=== PATIENT | female | born 1985 | race Caucasian/White ===

== ENCOUNTER → 2016-06-29 | Outpatient (CLI) | payer BC ==
[2016-06-29 17:50] LABS: ALT 47 U/L (9-52); AST 28 U/L (14-36); Alkaline Phosphatase 55 U/L (38-126); Anion Gap 11 mmol/L; Blood Urea Nitrogen 11 mg/dL (7-17); Calcium 9.7 mg/dL (8.4-10.2); Carbon Dioxide 27 mmol/L (22-30); Chloride 103 mmol/L (98-107); Cholesterol 148 mg/dL (<200); Glucose 86 mg/dL (74-99); HDL Cholesterol 50 mg/dL (40-60); Magnesium 2.1 mg/dL (1.6-2.3); Non-African American GFR(MDRD) >60 (>60 ml/min/1.73 sqM); Potassium 4.5 mmol/L (3.5-5.1); Sodium 141 mmol/L (137-145); Total Protein 7.8 g/dL (6.3-8.2); Triglycerides 98 mg/dL (<150)
[2016-06-29 18:07] LABS: Follicle Stimulating Hormone 4.8 mIU/mL
[2016-06-29 18:23] LABS: Estradiol 40 pg/mL
[2016-06-29 22:03] LABS: Hemoglobin A1C 4.8 % (4.2-6.1)
== END ==
LOC: LABWHC1 16:53
PROVIDERS: ATTEND Obstetrics & Gynecology
DX: E66.9 Obesity, unspecified (principal); I10 Essential (primary) hypertension; L68.0 Hirsutism; Z72.0 Tobacco use
CPT/HCPCS: 36415; 80053; 80061; 82670; 83001; 83036; 83735; 84403; 84439; 84443; 84481; 86376

== ENCOUNTER → 2017-12-22 | Outpatient (CLI) | payer MEDICAID ==
[2017-12-22 10:21] LABS: HCT 40.2 % (34.0-46.0); HGB 13.5 gm/dL (11.4-16.0); MCH 30.9 pg (25.0-35.0); MCHC 33.6 g/dL (31.0-37.0); MCV 91.9 fL (80.0-100.0); Mean Platelet Volume 6.7; Platelet Count 205 k/uL (150-450); RBC 4.38 m/uL (3.80-5.40); RDW 12.6 % (11.5-15.5); WBC 6.1 k/uL (3.8-10.6)
[2017-12-22 10:36] LABS: Uric Acid 2.2 mg/dL (3.7-7.4)
[2017-12-22 11:07] LABS: Collection Time,Urine 24 hrs; Total Volume 24 Hour,Urine 1950 mls (800-1800)
[2017-12-22 11:33] LABS: Creatinine 24 Hour,Urine 1585.4 mg/24hr (800.0-1800.0); Total Protein 24 Hour,Urine 156 mg/24hr (42.0-225.0)
[2017-12-22 18:49] LABS: HIV 1 AB Non-Reactive (Non-Reactive); HIV AB P24 Non-Reactive (Non-Reactive); HIV P24 AG Non-Reactive (Non-Reactive)
[2017-12-22 19:26] LABS: Hemoglobin A1C 4.5 % (4.0-6.0)
== END | disposition home or self-care (01) ==
LOC: LABWHC1 08:36
PROVIDERS: ATTEND Obstetrics & Gynecology
DX: Z34.81 Encounter for supervision of other normal pregnancy, first trimester (principal)
CPT/HCPCS: 36415; 81050; 82575; 82950; 83036; 84156; 84450; 84460; 84550; 85027; 86762; 86780; 86850; 86900; 86901; 87340; 87390

== ENCOUNTER → 2018-04-05 | Outpatient (CLI) | payer MEDICAID | LOC: LABWHC1 13:30 | PROVIDERS: ATTEND Obstetrics & Gynecology | DX: Z36.9 Encounter for antenatal screening, unspecified (principal); Z3A.00 Weeks of gestation of pregnancy not specified | CPT/HCPCS: 36415; 82950 ==

== ENCOUNTER 2018-06-22 23:40 | Inpatient (IN) | payer MEDICAID ==
[2018-06-22] MEDS ORDERED: LACTATED RINGERS 1,000 ML IV SCH (23:45)
[2018-06-22] MEDS ORDERED: PENICILLIN G POTASSIUM 5,000,000 UNIT in DEXTROSE 5% IN WATER 100 ML IVPB STA ×2 (23:49)
[2018-06-22] MEDS ORDERED: METHYLERGONOVINE 0.2 MG/ML 1 ML AMP IM PRN (23:49)
[2018-06-22] MEDS ORDERED: LIDOCAINE 0.5% (PF) 5 MG/ML (50 ML SDV) SQ PRN (23:49)
[2018-06-22] MEDS ORDERED: OXYTOCIN 10 UNIT/ML 1 ML VIAL IM PRN (23:49)
[2018-06-22] MEDS ORDERED: CARBOPROST TROMETHAMINE 250 MCG/ML 1 ML AMP IM PRN (23:49)
[2018-06-22] MEDS ORDERED: TERBUTALINE 1 MG/ML VIAL SQ PRN (23:49)
--- NOTE | 2018-06-23 00:33 | P.HPOB ---
History of Present Illness H&P Date: 06/23/18 Chief Complaint: Labor at 38-3/7 weeks This is a 33 year old 3 para 0111 woman who presents at 38-3/7 weeks gestation in advanced active labor. She reports onset of sudden strong contractions at approximate 10:45 PM. She got up to go to the bathroom and believe she has spontaneous rupture of membranes followed by increase in pelvic pressure. She presented to labor and delivery triage where she was found to be 9 cm dilated and nir every 1-2 minutes. She was therefore admitted. Her has been relatively uncomplicated. She is a tobacco smoker. She is known group B strep positive. Her obstetric history is significant for a previous 35 week normal spontaneous vaginal delivery in 2012. Laboratory data: Blood type B+, antibody screen negative, rubella immune, VDRL nonreactive, hepatitis B surface antigen negative, HIV negative, rubella immune, VDRL nonreactive, glucose tolerance testing within normal limits, group B strep positive Review of Systems All systems: negative Past Medical History Past Medical History: Hypertension Additional Past Medical History / Comment(s): induced HTN 3 yrs. ago, has resolved. Diverticulitis. History of Any Multi-Drug Resistant Organisms: None Reported Past Surgical History: Cholecystectomy Additional Past Surgical History / Comment(s): D&C 2011 Past Anesthesia/Blood Transfusion Reactions: No Reported Reaction Past Psychological History: No Psychological Hx Reported Smoking Status: Current every day smoker Past Alcohol Use History: Rare Past Drug Use History: None Reported - Past Family History Mother Family Medical History: Cancer, Hypertension Additional Family Medical History / Comment(s): breast cancer Sister(s) Family Medical History: Cancer Additional Family Medical History / Comment(s): uterine cancer Medications and Allergies Home Medications Medication Instructions Recorded Confirmed Type Pnv No.95/Ferrous Fum/Folic AC 1 each PO DAILY 06/22/18 06/22/18 History [ Multivitamin Tablet] Allergies Allergy/AdvReac Type Severity Reaction Status Date / Time meperidine HCl [From Demerol] Allergy Vomiting Verified 06/22/18 23:49 Exam Intake and Output 06/22/18 06/22/18 06/23/18 14:59 22:59 06:59 Other: Weight 120.202 kg Upon my initial evaluation the patient is completely dilated with strong urge to push. heart tones category 2. Assessment and Plan (1) 38 weeks gestation of Current Visit: Yes Status: Acute Code(s): Z3A.38 - 38 WEEKS GESTATION OF SNOMED Code(s): 88916777 (2) Spontaneous onset of labor Current Visit: Yes Status: Acute Code(s): DUC4020 - SNOMED Code(s): 34050219 (3) Spontaneous rupture of membranes Current Visit: Yes Status: Acute Code(s): QOC0808 - SNOMED Code(s): 480160722 Plan: 33-year-old 3 para 0111 woman who presents in advanced active labor at 38 and one sevenths weeks gestation. Group B strep positive. Anticipate normal spontaneous vaginal delivery.
[2018-06-23] MEDS ORDERED: diphenhydrAMINE 50 MG/ML 1 ML VIAL IVP PRN ×2 (00:35)
[2018-06-23] MEDS ORDERED: diphenhydrAMINE 50 MG CAP PO PRN (00:35)
[2018-06-23] MEDS ORDERED: diphenhydrAMINE 25 MG CAP PO PRN (00:35)
[2018-06-23] MEDS ORDERED: SIMETHICONE 80 MG CHEWABLE PO PRN (00:35)
[2018-06-23] MEDS ORDERED: HYDROCORTISONE 2.5% RECTAL CREAM 30 GM TUBE RECTAL PRN (00:35)
[2018-06-23] MEDS ORDERED: WITCH HAZEL 1 EACH MED..PAD TOPICAL PRN (00:35)
[2018-06-23] MEDS ORDERED: LANOLIN CREAM 5 GM TUBE TOPICAL PRN (00:35)
[2018-06-23] MEDS ORDERED: BENZOCAINE/MENTHOL SPRAY 1 GM/SPRAY AEROSOL TOPICAL PRN (00:35)
[2018-06-23] MEDS ORDERED: ACETAMINOPHEN TAB 325 MG TAB PO PRN (00:35)
[2018-06-23] MEDS ORDERED: ZOLPIDEM 5 MG TAB PO PRN (00:35)
--- NOTE | 2018-06-23 00:35 | P.PROBDLV ---
Vaginal Delivery Note - . Vaginal Delivery Note: Findings: Male infant in the vertex left occiput anterior position with nuchal cord 1. Apgars of 10 at 1 minute and 10 at 5 minutes weighing 7 lbs. 8 oz., 3395 g. Intact, three-vessel cord placenta. First-degree perineal laceration. Delivery summary: This is a 33-year-old 3 para 0111 woman who presented at 38-3/7 weeks gestation in advanced active labor. She had spontaneous onset of labor and rupture of membranes at home. When she arrived in labor and delivery triage she was 9+ centimeters dilated with strong urge to push. She was therefore admitted into labor suite on which time she was completely dilated. heart tones were category 2. She was repositioned in the dorsal modified Juan position and with maternal effort 2 the infant's head delivered from the left occiput anterior position. There was a tight nuchal cord which was unable to be reduced and was delivered through. The rest the infant was delivered onto the field. The nose and mouth were bulb suctioned. The was placed on the maternal abdomen and the cord was clamped and cut. Apgars were 10 at 1 minute and 10 at 5 minutes. Weight was 7 lbs. 8 oz. An intact, three-vessel cord placenta was expressed after approximately 5 minute third stage of labor. The patient received Pitocin intravenously following the third stage. The vagina was inspected and a first-degree laceration was noted. This was infused with lidocaine and repaired with a [id number] stitch of 3- 0 Vicryl suture. The rest of the vagina was inspected no further lacerations were noted. EBL was less than 100 mL's. The uterus is difficult to palpate secondary to maternal body habitus was was noted to be firm below the level of the umbilicus. All counts were correct and both mother and were doing well post delivery in the room.
[2018-06-23 00:44] LABS: Basophils % (A) 0 %; Eosinophils # (A) 0.1 k/uL (0-0.7); Eosinophils % (A) 1 %; HCT 40.6 % (34.0-46.0); HGB 13.5 gm/dL (11.4-16.0); Lymphocytes # (A) 2.4 k/uL (1.0-4.8); Lymphocytes % (A) 18 %; MCH 29.8 pg (25.0-35.0); MCHC 33.1 g/dL (31.0-37.0); MCV 90.1 fL (80.0-100.0); Mean Platelet Volume 7.1; Monocytes # (A) 0.7 k/uL (0-1.0); Monocytes % (A) 6 %; Neutrophils # (A) 9.4 k/uL (1.3-7.7); Neutrophils % (A) 74 %; Platelet Count 243 k/uL (150-450); RBC 4.51 m/uL (3.80-5.40); RDW 13.4 % (11.5-15.5); WBC 12.8 k/uL (3.8-10.6)
[2018-06-23] MEDS ORDERED: OXYTOCIN 20 UNITS/1000 ML NS 1,000 ML IV SCH (00:45)
[2018-06-23 00:48] VITALS: BMI 42.7
[2018-06-23] MEDS: IBUPROFEN 600 MG TAB PO PRN ×2 (01:31→15:46)
[2018-06-23] MEDS ORDERED: PENICILLIN G POTASSIUM 2,500,000 UNIT in DEXTROSE 5% IN WATER 100 ML IVPB SCH ×2 (03:50)
[2018-06-23] MEDS: SENNOSIDES-DOCUSATE SODIUM 1 EACH TAB PO SCH ×2 (15:47→19:39)
[2018-06-24] MEDS: IBUPROFEN 600 MG TAB PO PRN ×3 (04:12→23:00)
--- NOTE | 2018-06-24 10:55 | P.PNOBGVD ---
Subjective - Subjective Principal diagnosis: day 1 Interval history: Feeling very well. Breast-feeding successfully. Minimal lochia Patient reports: Reports appetite normal, Reports voiding normally, Reports pain well controlled, Reports ambulating normally [place]: doing well, nursing well, other (Observation for group B strep) Objective - Latest Vital Signs Latest vital signs: Vital Signs Temp Pulse Resp BP BP BP Pulse Ox 06/24/18 07:52 97.4 F L 73 15 96/58 06/24/18 00:00 98.2 F 78 16 102/53 06/23/18 16:00 97.9 F 84 16 133/85 06/23/18 14:00 77 15 126/80 131/91 06/23/18 12:00 97.9 F 88 15 117/88 141/105 99 Intake and Output 06/23/18 06/24/18 06/24/18 22:59 06:59 14:59 Other: # Voids 1 1 - Exam Extremities: Present: normal, edema Abdomen: Present: normal appearance, soft. Absent: tenderness Uterus: Present: normal, firm. Absent: tenderness Assessment and Plan (1) 38 weeks gestation of Current Visit: Yes Status: Acute Code(s): Z3A.38 - 38 WEEKS GESTATION OF SNOMED Code(s): 91562077 (2) Spontaneous onset of labor Current Visit: Yes Status: Acute Code(s): PWX0558 - SNOMED Code(s): 57583789 (3) Spontaneous rupture of membranes Current Visit: Yes Status: Acute Code(s): FFG9436 - SNOMED Code(s): 152584297 (4) Normal spontaneous vaginal delivery Narrative/Plan: day #1 status post normal spontaneous vaginal delivery. She is recovering very well. Discharge home tomorrow after infant discharged after observation for maternal group B strep status. Current Visit: Yes Status: Acute Code(s): O80 - ENCOUNTER FOR FULL-TERM UNCOMPLICATED DELIVERY SNOMED Code(s): 61368067 (5) Perineal laceration with delivery, first degree Current Visit: Yes Status: Acute Code(s): O70.0 - FIRST DEGREE PERINEAL L ACERATION DURING DELIVERY SNOMED Code(s): 428208749 (6) Nuchal cord Current Visit: Yes Status: Acute Code(s): O69.82X0 - LABOR AND DEL COMP BY OTH CORD ENTANGLE, W/O COMPRSN, UNSP SNOMED Code(s): 406332026
[2018-06-24] MEDS: SENNOSIDES-DOCUSATE SODIUM 1 EACH TAB PO SCH ×2 (15:30→19:48)
[2018-06-24 23:20] VITALS: PULSE 82
[2018-06-25] MEDS: IBUPROFEN 600 MG TAB PO PRN (07:37)
[2018-06-25 08:47] VITALS: BP 123/77; RESP 20; TEMP 98.9
[2018-06-25] MEDS: SENNOSIDES-DOCUSATE SODIUM 1 EACH TAB PO SCH (09:00)
--- NOTE | 2018-06-25 09:24 | P.DS ---
Providers Date of admission: 06/22/18 23:49 Expected date of discharge: 06/25/18 Attending physician: Jeannie Headley Primary care physician: Jeannie Headley - Discharge Diagnosis(es) (1) 38 weeks gestation of Current Visit: Yes Status: Acute (2) Spontaneous onset of labor Current Visit: Yes Status: Acute (3) Spontaneous rupture of membranes Current Visit: Yes Status: Acute (4) Normal spontaneous vaginal delivery Current Visit: Yes Status: Acute (5) Perineal laceration with delivery, first degree Current Visit: Yes Status: Acute (6) Nuchal cord Current Visit: Yes Status: Acute (7) GBS (group B Streptococcus carrier), +RV culture, currently Current Visit: Yes Status: Acute Hospital Course: This is a 33-year-old 2 now para 2 woman who was admitted at 38+ weeks gestation in advanced active labor. She had had spontaneous rupture of membranes at home and upon presentation to labor and delivery triage she was 9 cm dilated. She was known group B strep positive. Following admission she went on to have a precipitous delivery of a liveborn male with a nuchal cord 1. Apgars were 10 at 1 minute and 10 at 5 minutes. Her course was unremarkable. Due to maternal group B strep positive status and inability to give prophylactic antibiotics a timely fashion, the was observed. All signs were reassuring and by day #2 both mother and infant were doing well. She was able to ambulate and void spontaneously, her lochia was minimal, she was breast-feeding successfully and her vital signs were stable. She was therefore discharged home with routine instructions for care and follow-up Procedures: Normal spontaneous vaginal delivery Patient Condition at Discharge: Good Plan - Discharge Summary New Discharge Prescriptions: No Action Pnv No.95/Ferrous Fum/Folic AC [ Multivitamin Tablet] 1 each PO DAILY Discharge Medication List Pnv No.95/Ferrous Fum/Folic AC [ Multivitamin Tablet] 1 each PO DAILY 06/22/18 [History] Follow up Appointment(s)/Referral(s): Jeannie Headley MD [Primary Care Provider] - 6 Weeks Activity/Diet/Wound Care/Special Instructions: Follow-up in the office in 6 weeks . Call with any concerning signs or symptoms including heavy vaginal bleeding, severe abdominal pain, fever greater than 101, swelling or redness of the lower extremities, foul vaginal discharge, or signs of depression. Nothing in the vagina for 6 weeks after delivery, specifically no intercourse. Discharge Disposition: HOME SELF-CARE
== END 2018-06-25 11:21 | disposition home or self-care (01) | DRG 807 ==
LOC: FBPOP 23:40 → 4FBP 23:49
PROVIDERS: ADMIT Obstetrics & Gynecology; ATTEND Obstetrics & Gynecology
PROC: 10E0XZZ Delivery of Products of Conception, External Approach (ICD-10-PCS; principal; 2018-06-23)
PROC: 0HQ9XZZ Repair Perineum Skin, External Approach (ICD-10-PCS; 2018-06-23)
DX: O69.1XX0 Labor and delivery complicated by cord around neck, with compression, not applicable or unspecified (principal); Z37.0 Single live birth; O62.3 Precipitate labor; O70.0 First degree perineal laceration during delivery; O99.824 Streptococcus B carrier state complicating childbirth; O99.334 Smoking (tobacco) complicating childbirth; F17.200 Nicotine dependence, unspecified, uncomplicated; Z3A.38 38 weeks gestation of pregnancy; Z79.899 Other long term (current) drug therapy; Z90.49 Acquired absence of other specified parts of digestive tract; Z86.79 Personal history of other diseases of the circulatory system; Z87.19 Personal history of other diseases of the digestive system; Z88.5 Allergy status to narcotic agent; Z82.49 Family history of ischemic heart disease and other diseases of the circulatory system; Z80.3 Family history of malignant neoplasm of breast; Z80.49 Family history of malignant neoplasm of other genital organs
CPT/HCPCS: 85025; 86850; 86900; 86901; 99213

== ENCOUNTER 2018-06-28 14:31 | Emergency (ER) | payer MEDICAID ==
--- NOTE | 2018-06-28 15:12 | ED ---
General Adult HPI - General Chief complaint: Recheck/Abnormal Lab/Rx Stated complaint: High BP Time Seen by Provider: 06/28/18 14:35 Source: patient, RN notes reviewed Mode of arrival: ambulatory Limitations: no limitations - History of Present Illness Initial comments: This is a 33-year-old female who presents emergency Department 5 days. Patient comes in today because at home her blood pressure was very elevated systolic in the 170s. Patient also states that she's had quite a bit of swelling in her legs and has a frontal headache. Patient denies any numbness or weakness. Patient denies any chest pain palpitations difficulty breathing shortest breath per patient denies any fever chills per patient denies any abdominal pain. Patient denies any nausea or vomiting. Patient denies any rashes. - Related Data Home Medications Medication Instructions Recorded Confirmed Acetaminophen [Tylenol] 325 - 650 mg PO Q6H PRN 06/28/18 06/28/18 Ibuprofen [Motrin Ib] 200 - 600 mg PO Q6H PRN 06/28/18 06/28/18 Multivitamins, Thera [Multivitamin 1 tab PO DAILY 06/28/18 06/28/18 (formulary)] Allergies Allergy/AdvReac Type Severity Reaction Status Date / Time meperidine HCl [From Demerol] Allergy Vomiting Verified 06/28/18 15:41 Review of Systems ROS Statement: Those systems with pertinent positive or pertinent negative responses have been documented in the HPI. ROS Other: All systems not noted in ROS Statement are negative. Past Medical History Past Medical History: Hypertension Additional Past Medical History / Comment(s): induced HTN 3 yrs. ago, has resolved. Diverticulitis. History of Any Multi-Drug Resistant Organisms: None Reported Past Surgical History: Cholecystectomy Additional Past Surgical History / Comment(s): D&C 2011 Past Anesthesia/Blood Transfusion Reactions: No Reported Reaction Past Psychological History: No Psychological Hx Reported Smoking Status: Current every day smoker Past Alcohol Use History: Rare Past Drug Use History: None Reported - Past Family History Mother Family Medical History: Cancer, Hypertension Additional Family Medical History / Comment(s): breast cancer Sister(s) Family Medical History: Cancer Additional Family Medical History / Comment(s): uterine cancer General Exam - General Exam Comments Initial Comments: GENERAL: Patient is well-developed and well-nourished. Patient is nontoxic and well- hydrated and is in mild distress. ENT: Neck is soft and supple. No significant lymphadenopathy is noted. Oropharynx is clear. Moist mucous membranes. Neck has full range of motion without eliciting any pain. EYES: The sclera were anicteric and conjunctiva were pink and moist. Extraocular movements were intact and pupils were equal round and reactive to light. Eyelids were unremarkable. PULMONARY: Unlabored respirations. Good breath sounds bilaterally. No audible rales rhonchi or wheezing was noted. CARDIOVASCULAR: There is a regular rate and rhythm without any murmurs gallops or rubs. ABDOMEN: Soft and nontender with normal bowel sounds. SKIN: Skin is clear with no lesions or rashes and otherwise unremarkable. NEUROLOGIC: Patient is alert and oriented x3. Cranial nerves II through XII are grossly intact. Motor and sensory are also intact. Normal speech, volume and content. Symmetrical smile. MUSCULOSKELETAL: Normal extremities with adequate strength and full range of motion. Pedal edema bilaterally LYMPHATICS: No significant lymphadenopathy is noted PSYCHIATRIC: Normal psychiatric evaluation. Limitations: no limitations Course Vital Signs 06/28/18 06/28/18 06/28/18 14:33 14:38 14:56 Pulse Rate 83 Respiratory 18 20 Rate Blood Pressure 134/94 147/83 138/75 O2 Sat by Pulse 99 Oximetry 06/28/18 15:53 Pulse Rate 89 Respiratory 18 Rate Blood Pressure 125/97 O2 Sat by Pulse 100 Oximetry Medical Decision Making - Medical Decision Making Patient's blood pressure stayed under 150 systolic while in the emergency department. I spoke with Dr. Vigil and she felt with the blood results and the blood pressure the patient could follow-up on Monday with the understanding that she needs to return if she gets a bad headache blood pressure over 160/100 or epigastric abdominal pain. I relayed this to the patient she understood. - Lab Data Result diagrams: 06/28/18 15:28 06/28/18 15:28 Lab Results 06/28/18 06/28/18 06/28/18 Range/Units 15:28 15:28 15:28 WBC 8.0 (3.8-10.6) k/uL RBC 4.21 (3.80-5.40) m/uL Hgb 12.7 (11.4-16.0) gm/dL Hct 38.7 (34.0-46.0) % MCV 92.0 (80.0-100.0) fL MCH 30.2 (25.0-35.0) pg MCHC 32.9 (31.0-37.0) g/dL RDW 12.9 (11.5-15.5) % Plt Count 220 (150-450) k/uL Neutrophils % 73 % Lymphocytes % 20 % Monocytes % 5 % Eosinophils % 1 % Basophils % 0 % Neutrophils # 5.8 (1.3-7.7) k/uL Lymphocytes # 1.6 (1.0-4.8) k/uL Monocytes # 0.4 (0-1.0) k/uL Eosinophils # 0.1 (0-0.7) k/uL Basophils # 0.0 (0-0.2) k/uL Sodium 141 (137-145) mmol/L Potassium 3.8 (3.5-5.1) mmol/L Chloride 109 H (98-107) mmol/L Carbon Dioxide 26 (22-30) mmol/L Anion Gap 6 mmol/L BUN 11 (7-17) mg/dL Creatinine 0.63 (0.52-1.04) mg/dL Est GFR (CKD-EPI)AfAm >90 (>60 ml/min/1.73 sqM) Est GFR (CKD-EPI)NonAf >90 (>60 ml/min/1.73 sqM) Glucose 73 L (74-99) mg/dL Calcium 9.2 (8.4-10.2) mg/dL Magnesium 1.7 (1.6-2.3) mg/dL Total Bilirubin 0.5 (0.2-1.3) mg/dL AST 21 (14-36) U/L ALT 31 (9-52) U/L Alkaline Phosphatase 77 (38-126) U/L Total Protein 5.8 L (6.3-8.2) g/dL Albumin 3.2 L (3.5-5.0) g/dL Urine Color Yellow Urine Appearance Cloudy H (Clear) Urine pH 6.0 (5.0-8.0) Ur Specific [place] 1.011 (1.001-1.035) Urine Protein Trace H (Negative) Urine Glucose (UA) Negative (Negative) Urine Ketones Negative (Negative) Urine Blood Large H (Negative) Urine Nitrite Negative (Negative) Urine Bilirubin Negative (Negative) Urine Urobilinogen <2.0 (<2.0) mg/dL Ur Leukocyte Esterase Large H (Negative) Urine RBC 65 H (0-5) /hpf Urine WBC 76 H (0-5) /hpf Ur Squamous Epith Cells <1 (0-4) /hpf Urine Mucus Rare H (None) /hpf Disposition Clinical Impression: Pedal edema, Cephalgia, Hypertension affecting Disposition: HOME SELF-CARE Condition: Good Instructions (If sedation given, give patient instructions): Leg Edema (ED) Is patient prescribed a controlled substance at d/c from ED?: No Referrals: Jayjay Ng MD [Primary Care Provider] - 1-2 days Time of Disposition: 16:44
[2018-06-28 15:58] LABS: Basophils % (A) 0 %; Eosinophils # (A) 0.1 k/uL (0-0.7); Eosinophils % (A) 1 %; HCT 38.7 % (34.0-46.0); HGB 12.7 gm/dL (11.4-16.0); Lymphocytes # (A) 1.6 k/uL (1.0-4.8); Lymphocytes % (A) 20 %; MCH 30.2 pg (25.0-35.0); MCHC 32.9 g/dL (31.0-37.0); Mean Platelet Volume 6.6; Monocytes # (A) 0.4 k/uL (0-1.0); Monocytes % (A) 5 %; Neutrophils # (A) 5.8 k/uL (1.3-7.7); Neutrophils % (A) 73 %; Platelet Count 220 k/uL (150-450); RBC 4.21 m/uL (3.80-5.40); RDW 12.9 % (11.5-15.5)
[2018-06-28 15:59] VITALS: PULSE 89; RESP 18
[2018-06-28 16:02] LABS: Appearance,Urine Cloudy (Clear); Bilirubin,Urine Negative (Negative); Blood,Urine Large (Negative); Color,Urine Yellow; Glucose,Urine (UA) Negative (Negative); Ketones,Urine Negative (Negative); Leukocyte Esterase,Urine Large (Negative); Mucus,Urine Rare /hpf; Nitrite,Urine Negative (Negative); Protein,Urine Trace (Negative); RBC,Urine 65 /hpf (0-5); Specific Gravity,Urine 1.011 (1.001-1.035); Squamous Epithelial Cell,Urine <1 /hpf (0-4); Urobilinogen,Urine <2.0 mg/dL (<2.0); WBC,Urine 76 /hpf (0-5)
[2018-06-28 16:04] LABS: ALT 31 U/L (9-52); AST 21 U/L (14-36); Albumin 3.2 g/dL (3.5-5.0); Alkaline Phosphatase 77 U/L (38-126); Anion Gap 6 mmol/L; Blood Urea Nitrogen 11 mg/dL (7-17); Calcium 9.2 mg/dL (8.4-10.2); Carbon Dioxide 26 mmol/L (22-30); Chloride 109 mmol/L (98-107); Glucose 73 mg/dL (74-99); Magnesium 1.7 mg/dL (1.6-2.3); Potassium 3.8 mmol/L (3.5-5.1); Sodium 141 mmol/L (137-145); Total Bilirubin 0.5 mg/dL (0.2-1.3); Total Protein 5.8 g/dL (6.3-8.2)
[2018-06-28 17:14] VITALS: BP 119/73
== END 2018-06-28 17:14 | disposition home or self-care (01) ==
LOC: EC 14:31
DX: O90.89 Other complications of the puerperium, not elsewhere classified (principal); R60.0 Localized edema; R51 Headache; I10 Essential (primary) hypertension; O99.335 Smoking (tobacco) complicating the puerperium; F17.200 Nicotine dependence, unspecified, uncomplicated; Z88.5 Allergy status to narcotic agent
CPT/HCPCS: 36415; 80053; 81001; 83735; 85025; 99283

== ENCOUNTER → 2019-09-04 | Outpatient (CLI) | payer MEDICAID ==
[2019-09-04 07:28] LABS: Basophils % (A) 1 %; Eosinophils # (A) 0.1 k/uL (0-0.7); Eosinophils % (A) 1 %; HCT 45.2 % (34.0-46.0); HGB 15.1 gm/dL (11.4-16.0); Lymphocytes # (A) 2.2 k/uL (1.0-4.8); Lymphocytes % (A) 35 %; MCH 29.3 pg (25.0-35.0); MCHC 33.3 g/dL (31.0-37.0); MCV 87.9 fL (80.0-100.0); Mean Platelet Volume 7.1; Monocytes # (A) 0.3 k/uL (0-1.0); Monocytes % (A) 4 %; Neutrophils # (A) 3.5 k/uL (1.3-7.7); Neutrophils % (A) 57 %; Platelet Count 259 k/uL (150-450); RBC 5.14 m/uL (3.80-5.40); RDW 12.8 % (11.5-15.5); WBC 6.1 k/uL (3.8-10.6)
[2019-09-04 07:38] LABS: Appearance,Urine Clear (Clear); Bilirubin,Urine Negative (Negative); Blood,Urine Negative (Negative); Color,Urine Light Yellow; Glucose,Urine (UA) Negative (Negative); Ketones,Urine Negative (Negative); Leukocyte Esterase,Urine Negative (Negative); Nitrite,Urine Negative (Negative); PH, Urine 5.5 (5.0-8.0); Protein,Urine Negative (Negative); Specific Gravity,Urine 1.008 (1.001-1.035); Urobilinogen,Urine <2.0 mg/dL (<2.0)
[2019-09-04 11:50] LABS: African American GFR (CKD) 136.9 (60.0-200.0); Albumin 4.4 g/dL (3.80-4.90); Globulin 2.2 g/dL (1.6-3.3); Non-African American GFR(CKD) 118.1 (60.0-200.0); Potassium 4.2 mmol/L (3.5-5.5); Total Bilirubin 0.4 mg/dL (0.2-1.2); Total Protein 6.6 g/dL (6.2-8.2)
== END | disposition home or self-care (01) ==
LOC: LABMAIN 06:51
PROVIDERS: ATTEND Internal Medicine
DX: R10.9 Unspecified abdominal pain (principal)
CPT/HCPCS: 36415; 80053; 81003; 83690; 85025

== ENCOUNTER → 2019-09-18 | Outpatient (CLI) | payer MEDICAID ==
--- NOTE | 2019-09-18 07:33 | US ---
EXAMINATION TYPE: US gallbladder DATE OF EXAM: 09/18/2019 COMPARISON: NONE CLINICAL HISTORY: R10.9 abdomial pain.Pain EXAM MEASUREMENTS: Liver Length: 15.7 cm Gallbladder Wall: Surgically absent CBD: .8 cm Right Kidney: 11.0 x 4.5 x 5.6 cm Pancreas: obscured by overlying bowel gas Liver: Increased attenuation Gallbladder: Surgically absent Evidence for sonographic Mena's sign: No CBD: wnl Right Kidney: wnl IMPRESSION: 1. Postcholecystectomy changes. 2. Correlate for hepatic steatosis versus hepatitis.
== END | disposition home or self-care (01) ==
LOC: RADUSWWP 07:01
PROVIDERS: ATTEND Internal Medicine
DX: R10.9 Unspecified abdominal pain (principal); Z90.49 Acquired absence of other specified parts of digestive tract; Z98.890 Other specified postprocedural states
CPT/HCPCS: 76705

== ENCOUNTER → 2019-10-15 | Outpatient (CLI) | payer MEDICAID ==
--- NOTE | 2019-10-15 09:08 | CT ---
EXAMINATION TYPE: CT abdomen wo con DATE OF EXAM: 10/15/2019 COMPARISON: 02/02/2015 HISTORY: 34-year-old female Right sided abdominal pain TECHNIQUE: Contiguous axial scanning of the abdomen without IV contrast. Coronal and sagittal reconst ructions performed. CT DLP: 763.1 mGycm Automated exposure control for dose reduction was used. FINDINGS: Heart normal size without pericardial effusion. Lung bases clear without pleural effusion. Noncontrast appearance of the liver shows a tiny 6 mm hypodensity anterior left liver lobe, nonspecif ic, probable cyst. Liver is borderline enlarged at 17.9 cm. No significant fatty infiltration is appa rent by noncontrast CT. Cholecystectomy clips. Adrenal glands, kidneys, spleen, and pancreas show no gross abnormality by noncontrast CT. Scattered nonenlarged mesenteric lymph nodes. No dilated small bowel, free fluid, or free air. Moderate stool burden. No pericolonic inflammatory change. Some diverticular changes noted along the visualized proximal sigmoid. Pelvis is not imaged. Bones: Mild disc bulging lower lumbar spine. IMPRESSION: 1. BORDERLINE HEPATOMEGALY AT 17.9 CM. 2. STATUS POST CHOLECYSTECTOMY. 3. MODERATE STOOL BURDEN. 4. PARTIALLY VISUALIZED PROXIMAL SIGMOID DIVERTICULOSIS. NO ACUTE INFLAMMATION SEEN.
== END | disposition home or self-care (01) ==
LOC: RADCTMAIN 07:29
PROVIDERS: ATTEND Internal Medicine
DX: K57.30 Diverticulosis of large intestine without perforation or abscess without bleeding (principal); R16.0 Hepatomegaly, not elsewhere classified; R19.5 Other fecal abnormalities; Z90.49 Acquired absence of other specified parts of digestive tract
CPT/HCPCS: 74150

== ENCOUNTER → 2020-02-29 | Outpatient (CLI) | payer MEDICAID | END | disposition home or self-care (01) | LOC: LABMAIN 15:31 | PROVIDERS: ATTEND Internal Medicine | DX: R07.9 Chest pain, unspecified (principal) | CPT/HCPCS: 36415; 84484 ==

== ENCOUNTER → 2020-03-21 | Outpatient (CLI) | payer MEDICAID | END | disposition home or self-care (01) | LOC: LABMAIN 13:57 | PROVIDERS: ATTEND Internal Medicine | DX: Z53.9 Procedure and treatment not carried out, unspecified reason (principal) ==

== ENCOUNTER → 2020-03-22 | Outpatient (CLI) | payer MEDICAID ==
[2020-03-22 07:26] LABS: Basophils % (A) 1 %; Eosinophils # (A) 0.1 k/uL (0-0.7); Eosinophils % (A) 1 %; HCT 43.5 % (34.0-46.0); Lymphocytes % (A) 27 %; MCHC 34.5 g/dL (31.0-37.0); MCV 89.8 fL (80.0-100.0); Mean Platelet Volume 6.8; Monocytes # (A) 0.3 k/uL (0-1.0); Monocytes % (A) 4 %; Neutrophils # (A) 4.8 k/uL (1.3-7.7); Neutrophils % (A) 66 %; Platelet Count 231 k/uL (150-450); RBC 4.84 m/uL (3.80-5.40); RDW 12.2 % (11.5-15.5); WBC 7.2 k/uL (3.8-10.6)
[2020-03-22 15:46] LABS: African American GFR (CKD) 129.2 (60.0-200.0); Albumin 4.5 g/dL (3.80-4.90); Albumin/Globulin Ratio 2.14 (1.60-3.17); Anion Gap 6.3 mmol/L (4.00-12.00); BUN/Creat Ratio 18.57 Ratio (12.00-20.00); Calcium 9.2 mg/dL (8.7-10.3); Carbon Dioxide 23.7 mmol/L (21.6-31.8); Globulin 2.1 g/dL (1.6-3.3); Non-African American GFR(CKD) 111.5 (60.0-200.0); Potassium 4.3 mmol/L (3.5-5.5); Total Bilirubin 0.5 mg/dL (0.3-1.2); Total Protein 6.6 g/dL (6.2-8.2)
== END | disposition home or self-care (01) ==
LOC: LABMAIN 07:08
PROVIDERS: ATTEND Internal Medicine
DX: I10 Essential (primary) hypertension (principal); E66.9 Obesity, unspecified; F43.22 Adjustment disorder with anxiety
CPT/HCPCS: 36415; 80053; 83690; 84443; 85025

== ENCOUNTER → 2020-04-16 | Outpatient (CLI) | payer MEDICAID ==
--- NOTE | 2020-04-16 09:28 | USB ---
Reason for exam: clinical finding. History: Family history of breast cancer in maternal grandmother and breast cancer in mother at age 51. Physical Findings: Nurse Summary: Patient complains of right lateral shooting pain to nipple x 1 week (nurse shakir). US Breast BILAT Right complete breast ultrasound includes all four quadrants, the retroareolar region and axilla. Finding demonstrates no cystic or solid lesion seen. Left complete breast ultrasound includes all four quadrants, the retroareolar region and axilla. Finding demonstrates no cystic or solid lesion seen. These results were verbally communicated with the patient and result sheet given to the patient on 04/16/20. ASSESSMENT: Negative, BI-RAD 1 RECOMMENDATION: Routine screening mammogram of both breasts.
== END | disposition home or self-care (01) ==
LOC: RADUSWWP 08:11
PROVIDERS: ATTEND Internal Medicine
DX: Z12.39 Encounter for other screening for malignant neoplasm of breast (principal)

== ENCOUNTER → 2020-04-17 | Outpatient (CLI) | payer MEDICAID | END | disposition home or self-care (01) | LOC: LABMAIN 18:41 | PROVIDERS: ATTEND Physician Assistant Medical | DX: Z20.828 Contact with and (suspected) exposure to other viral communicable diseases (principal) | CPT/HCPCS: 36415; 86769 ==

== ENCOUNTER → 2021-02-13 | Outpatient (CLI) | payer MEDICAID, OTHER | END | disposition home or self-care (01) | LOC: LABWHC1 17:26 | PROVIDERS: ATTEND Emergency Medicine | DX: Z20.822 Contact with and (suspected) exposure to COVID-19 (principal) | CPT/HCPCS: 87635 ==

== ENCOUNTER → 2021-02-14 | Outpatient (CLI) | payer MEDICAID, OTHER | END | disposition home or self-care (01) | LOC: LABMAIN 18:02 | PROVIDERS: ATTEND Emergency Medicine | DX: Z20.822 Contact with and (suspected) exposure to COVID-19 (principal) | CPT/HCPCS: 87635 ==

== ENCOUNTER → 2021-02-17 | Outpatient (CLI) | payer MEDICAID, OTHER | END | disposition home or self-care (01) | LOC: LABWHC1 17:21 | PROVIDERS: ATTEND Emergency Medicine | DX: U07.1 COVID-19 (principal) | CPT/HCPCS: 87635 ==

== ENCOUNTER 2022-05-03 08:52 | Emergency (ER) | payer MEDICAID, OTHER ==
[2022-05-03 09:10] VITALS: RESP 18
[2022-05-03 09:25] LABS: ALT 19 U/L (4-34); AST 17 U/L (14-36); African American GFR (CKD) >90 (>60 ml/min/1.73 sqM); Albumin 4.6 g/dL (3.5-5.0); Alkaline Phosphatase 60 U/L (38-126); Anion Gap 6 mmol/L; Blood Urea Nitrogen 18 mg/dL (7-17); Calcium 8.7 mg/dL (8.4-10.2); Carbon Dioxide 25 mmol/L (22-30); Chloride 108 mmol/L (98-107); Glucose 94 mg/dL (74-99); Non-African American GFR(CKD) >90 (>60 ml/min/1.73 sqM); Potassium 4.1 mmol/L (3.5-5.1); Sodium 139 mmol/L (137-145); Total Bilirubin 0.4 mg/dL (0.2-1.3); Total Protein 7.4 g/dL (6.3-8.2)
[2022-05-03 09:38] LABS: Basophils % (A) 1 %; Eosinophils # (A) 0.1 k/uL (0-0.7); Eosinophils % (A) 1 %; HCT 41.7 % (34.0-46.0); HGB 14.8 gm/dL (11.4-16.0); Lymphocytes # (A) 1.8 k/uL (1.0-4.8); Lymphocytes % (A) 35 %; MCH 30.7 pg (25.0-35.0); MCHC 35.4 g/dL (31.0-37.0); MCV 86.9 fL (80.0-100.0); Mean Platelet Volume 7.3; Monocytes # (A) 0.3 k/uL (0-1.0); Monocytes % (A) 6 %; Neutrophils # (A) 2.9 k/uL (1.3-7.7); Neutrophils % (A) 56 %; Platelet Count 227 k/uL (150-450); RDW 12.5 % (11.5-15.5); WBC 5.1 k/uL (3.8-10.6)
[2022-05-03 09:42] LABS: HCG,Quantitative Serum <2.4 mIU/mL
[2022-05-03] MEDS ORDERED: ASPIRIN 81 MG PO STA (10:11)
--- NOTE | 2022-05-03 10:17 | ED ---
Chest Pain HPI - General Chief Complaint: Chest Pain Stated Complaint: palpitations, SOB Time Seen by Provider: 05/03/22 08:53 Source: patient, RN notes reviewed, old records reviewed Mode of arrival: ambulatory Limitations: no limitations - History of Present Illness Initial Comments: Patient is a 37-year-old female with past medical history of hypertension, presenting to the emergency Department with complaints of chest pain, nausea that started just a few minutes ago. Patient states she has been experiencing palpitations over the past week but today it is accompanied by chest discomfort, nausea, diaphoresis and some mild upper back pain. Patient denies any falls or trauma. She denies any cardiac history except for the hypertension. She denies any recent travel, no lower leg pain, no history of DVT. She does admit to stress. She denies any recent fevers or chills, no recent viral illnesses. She denies any recent cough. No abdominal pain, she does endorse mild nausea, no vomiting. She denies being . No lightheadedness or dizziness. Patient is no further complaints. - Related Data Home Medications Medication Instructions Recorded Confirmed buPROPion SR [Wellbutrin SR] 150 mg PO HS 05/03/22 05/03/22 Allergies Allergy/AdvReac Type Severity Reaction Status Date / Time meperidine HCl [From Demerol] AdvReac Vomiting Verified 05/03/22 11:38 Review of Systems ROS Statement: Those systems with pertinent positive or pertinent negative responses have been documented in the HPI. ROS Other: All systems not noted in ROS Statement are negative. EKG Findings - EKG Comments: EKG Findings:: Ventricular rate 75, PA interval 135, QT 379. Normal sinus rhythm, no acute process. Past Medical History Past Medical History: Hypertension Additional Past Medical History / Comment(s): induced HTN 3 yrs. ago, has resolved. Diverticulitis. History of Any Multi-Drug Resistant Organisms: None Reported Past Surgical History: Cholecystectomy Additional Past Surgical History / Comment(s): D&C 2011 Past Anesthesia/Blood Transfusion Reactions: No Reported Reaction Past Psychological History: No Psychological Hx Reported Smoking Status: Current some day smoker Past Alcohol Use History: Rare Past Drug Use History: None Reported - Past Family History Mother Family Medical History: Cancer, Hypertension Additional Family Medical History / Comment(s): breast cancer Sister(s) Family Medical History: Cancer Additional Family Medical History / Comment(s): uterine cancer General Exam - General Exam Comments Initial Comments: GENERAL: Patient is well-developed and well-nourished. Patient is nontoxic and in no acute distress, appears anxious, teary-eyed. HEAD: Atraumatic, normocephalic. EYES: Pupils equal round and reactive to light, extraocular movements intact, sclera anicteric, conjunctiva are normal. Eyelids were unremarkable. ENT: Nares patent, oropharynx clear without exudates. Moist mucous membranes. NECK: Normal range of motion, supple without lymphadenopathy or JVD. LUNGS: Unlabored respirations. Breath sounds clear to auscultation bilaterally and equal. No wheezes rales or rhonchi. HEART: Regular rate and rhythm without murmurs, rubs or gallops. ABDOMEN: Soft, nontender, normoactive bowel sounds. No guarding, no rebound. No masses appreciated. MUSCULOSKELETAL: Normal extremities with adequate strength and normal range of motion, no pitting or edema. No clubbing or cyanosis. NEUROLOGICAL: Patient is alert and oriented x 3. . Normal speech, normal gait. PSYCH: Normal mood, normal affect. SKIN: Warm, Dry, normal turgor, no rashes or lesions noted. Limitations: no limitations Course Vital Signs 05/03/22 05/03/22 05/03/22 09:07 09:30 10:18 Pulse Rate 82 71 Pulse Rate [ 82 Learning Manager ] Respiratory 18 18 Rate Blood Pressure 134/98 130/86 O2 Sat by Pulse 99 97 Oximetry 05/03/22 11:25 Pulse Rate 75 Pulse Rate [ Learning Manager ] Respiratory 18 Rate Blood Pressure 137/92 O2 Sat by Pulse 98 Oximetry Chest Pain [facility] Patient is a 37-year-old female here with palpitations 1 week, chest pain, nausea started today. The signs are stable upon arrival. EKG showing normal sinus rhythm, no acute process. Laboratory studies are unremarkable including a normal troponin, d-dimer n egative. Chest x-ray showing no acute process. Repeat troponin remains normal. Her vital signs remained normal. Patient's palpitations most likely secondary to recent restart of Wellbutrin. Recommended discontinuing use until follow-up with PCP. Patient is agreeable with this. She feels stable for discharge home. Return parameters discussed. Case discussed with Dr. Marquez. Was pt. sent in by a medical professional or institution (, JERRELL, MEDICAL UNDERWRITER, urgent care, hospital, or care home...) When possible be specific @ -[No] Did you speak to anyone other than the patient for history (EMS, parent, family, police, friend...)? What history was obtained from this source @ -[No] Did you review nursing and triage notes (agree or disagree)? Why? @ -[I reviewed and agree with nursing and triage notes] Were old charts reviewed (outside hosp., previous admission, EMS record, old EKG, old radiological studies, urgent care reports/EKG's, care home records)? Report findings @ -[No old charts were reviewed] Differential Diagnosis (chest pain, altered mental status, abdominal pain women, abdominal pain men, vaginal bleeding, weakness, fever, dyspnea, syncope, headache, dizziness, GI bleed, back pain, seizure, CVA, palpatations, mental health)? @ -[Differential Chest Pain: Stable Angina, Unstable Angina, STEMI, NSTEMI Aortic Dissection, Pneumothorax, Musculoskeletal, Esophageal Spasm GERD, this is not meant to be an all-inclusive list. ] EKG interpreted by me (3pts min.). @ -[As above] X-rays interpreted by me (1pt min.). @ -[chest x-ray, no acute process] CT interpreted by me (1pt min.). @ -[None done] U/S interpreted by me (1pt. min.). @ -[None done] What testing was considered but not performed or refused? (CT, X-rays, U/S, labs)? Why? @ -[None] What meds were considered but not given or refused? Why? @ -[None] Did you discuss the management of the patient with other professionals (professionals i.e. JERRELL Buckley, MEDICAL UNDERWRITER, lab, RT, psych nurse, outreach and education social worker, brim curler, teacher, environmental conservation officer, lining caser)? Give summary @ -[Dr. Marquez] Was smoking cessation discussed for >3mins.? @ -[No] Was critical care preformed (if so, how long)? @ -[No] Were there social determinants of health that impacted care today? How? (Homelessness, low income, unemployed, alcoholism, drug addiction, transportation, low edu. Level, literacy, decrease access to med. care, fdc, rehab)? @ -[No] Was there de-escalation of care discussed even if they declined (Discuss DNR or withdrawal of care, Hospice)? DNR status @ -[No] What co-morbidities impacted this encounter? (DM, HTN, Smoking, COPD, CAD, Cancer, CVA, ARF, Chemo, Hep., AIDS, mental health diagnosis, sleep apnea, morbid obesity)? @ -[None] Undiagnosed new problem with uncertain prognosis? @ -[No] Drug Therapy requiring intensive monitoring for toxicity (Heparin, Nitro, Insulin, Cardizem)? @ -[No] Disposition Clinical Impression: Heart palpitations, Chest pain Disposition: HOME SELF-CARE Condition: Stable Instructions (If sedation given, give patient instructions): Heart Palpitations (ED) Additional Instructions: Please return to the Emergency Department if symptoms worsen or any other concerns. Hold Wellbutrin until follow-up with your PCP. Is patient prescribed a controlled substance at d/c from ED?: No Referrals: Sarah Cuadra DO [Primary Care Provider] - 1-2 days Time of Disposition: 12:17
--- NOTE | 2022-05-03 11:12 | XR ---
EXAMINATION TYPE: XR chest 2V DATE OF EXAM: 05/03/2022 COMPARISON: NONE HISTORY: Chest pain TECHNIQUE: Frontal and lateral views of the chest are obtained. FINDINGS: There is no focal air space opacity. No evidence for pneumothorax. No pleural effusion. The cardiac silhouette size is within normal limits. The osseous structures are grossly intact. IMPRESSION: 1. No acute cardiopulmonary process.
[2022-05-03 12:27] VITALS: BP 118/77; PULSE 82
== END 2022-05-03 12:27 | disposition home or self-care (01) ==
LOC: EC 08:52
DX: R00.2 Palpitations (principal); R07.89 Other chest pain; I10 Essential (primary) hypertension; F17.200 Nicotine dependence, unspecified, uncomplicated; Z79.899 Other long term (current) drug therapy; Z88.5 Allergy status to narcotic agent
CPT/HCPCS: 36415; 71046; 80053; 84443; 84484; 84702; 85025; 85379; 93005; 99285

== ENCOUNTER → 2022-08-19 | Outpatient (CLI) | payer MEDICAID | END | disposition home or self-care (01) | LOC: LABMAIN 10:52 | PROVIDERS: ATTEND Physician Assistant Medical | DX: O46.90 Antepartum hemorrhage, unspecified, unspecified trimester (principal); Z3A.00 Weeks of gestation of pregnancy not specified | CPT/HCPCS: 84702 ==

== ENCOUNTER → 2022-10-03 | Outpatient (CLI) | payer MEDICAID ==
[2022-10-03 11:23] LABS: HCT 41.1 % (34.0-46.0); HGB 13.9 gm/dL (11.4-16.0); MCH 30.7 pg (25.0-35.0); MCHC 33.8 g/dL (31.0-37.0); MCV 90.9 fL (80.0-100.0); Mean Platelet Volume 7.3; Platelet Count 200 k/uL (150-450); RBC 4.53 m/uL (3.80-5.40); RDW 12.8 % (11.5-15.5); WBC 6.5 k/uL (3.8-10.6)
[2022-10-03 11:54] LABS: Uric Acid 2.5 mg/dL (3.7-7.4)
[2022-10-03 14:25] LABS: Total Volume 24 Hour,Urine 2550 mls (800-1800)
[2022-10-03 14:42] LABS: Total Protein 24 Hour,Urine 179 mg/24hr (42.0-225.0)
[2022-10-03 14:43] LABS: Creatinine 24 Hour,Urine 2159.9 mg/24hr (800.0-1800.0)
[2022-10-03 15:15] LABS: 24-hr Urine Specific Gravity 1.017 (1.001-1.035)
[2022-10-03 18:02] LABS: Hepatitis B Surface Antigen Nonreactive
[2022-10-03 18:22] LABS: HIV 2 AB Non-Reactive (Non-Reactive); HIV AB P24 Non-Reactive (Non-Reactive); HIV P24 AG Non-Reactive (Non-Reactive)
== END | disposition home or self-care (01) ==
LOC: LABMAIN 10:45
PROVIDERS: ATTEND Physician Assistant
DX: O16.9 Unspecified maternal hypertension, unspecified trimester (principal); Z87.59 Personal history of other complications of pregnancy, childbirth and the puerperium; O99.210 Obesity complicating pregnancy, unspecified trimester; O09.529 Supervision of elderly multigravida, unspecified trimester
CPT/HCPCS: 81050; 82565; 83036; 84156; 84450; 84460; 84550; 85027; 86762; 86780; 86850; 86900; 86901; 87340; 87390

== ENCOUNTER 2023-03-05 14:45 | Outpatient (CLI) | payer BC ==
[2023-03-05 16:04] LABS: Basophils % (A) 0 %; Eosinophils % (A) 0 %; HCT 36.6 % (34.0-46.0); Lymphocytes # (A) 1.7 k/uL (1.0-4.8); Lymphocytes % (A) 21 %; MCH 31.4 pg (25.0-35.0); MCHC 35.7 g/dL (31.0-37.0); MCV 88.1 fL (80.0-100.0); Mean Platelet Volume 8.1; Monocytes # (A) 0.4 k/uL (0-1.0); Monocytes % (A) 5 %; Neutrophils % (A) 73 %; Platelet Count 195 k/uL (150-450); RBC 4.15 m/uL (3.80-5.40); RDW 13.9 % (11.5-15.5); WBC 8.2 k/uL (3.8-10.6)
[2023-03-05 16:16] LABS: Creatinine,Urine Random 84.6 mg/dL; Protein/Creatinine Ratio,Urine 0.177
[2023-03-05 16:16] LABS: ALT 18 U/L (4-34); AST 21 U/L (14-36); African American GFR (CKD) >90 (>60 ml/min/1.73 sqM); Blood Urea Nitrogen 7 mg/dL (7-17); LDH 173 U/L (120-246); Non-African American GFR(CKD) >90 (>60 ml/min/1.73 sqM); Uric Acid 2.6 mg/dL (3.7-7.4)
[2023-03-05 16:24] LABS: Appearance,Urine Cloudy (Clear); Bilirubin,Urine Negative (Negative); Blood,Urine Negative (Negative); Color,Urine Light Yellow; Glucose,Urine (UA) Negative (Negative); Ketones,Urine Negative (Negative); Leukocyte Esterase,Urine Small (Negative); Mucus,Urine Rare /hpf; Nitrite,Urine Negative (Negative); PH, Urine 6.5 (5.0-8.0); Protein,Urine Negative (Negative); RBC,Urine 1 /hpf (0-5); Specific Gravity,Urine 1.016 (1.001-1.035); Squamous Epithelial Cell,Urine 6 /hpf (0-4); Urobilinogen,Urine <2.0 mg/dL (<2.0); WBC,Urine 7 /hpf (0-5)
[2023-03-05 16:55] VITALS: BP 135/83; PULSE 98; RESP 18; TEMP 97.9
--- NOTE | 2023-03-18 11:42 | P.MSEPDOC ---
Presenting Problems - Arrival Data Date of Arrival on Unit: 03/05/23 Time of Arrival on Unit: 14:45 Mode of Transport: Ambulatory - Complaint OB-Reason for Admission/Chief Complaint: Acute Nausea/Vomiting, Headache, PIH Medical History - Information : 4 Para: 2 Term: 1 : 1 Abortions: Spontaneous or Elective: 1 Number of Living Children: 2 - Gestational Age Gestational Age by SARABJIT (wks/days): 33 Weeks and 0 Days - History Comment: pt is being monitored for elevated bps, currently collecting 24 hour urine and started taking labetalol 200 mg bid three days ago, pt also reports recent finding of polyhydraminos Review of Systems - Review of Systems Constitutional: No problems Breast: No problems ENT: No problems Cardiovascular: No problems Respiratory: No problems Gastrointestinal: No problems Genitourinary: No problems Musculoskeletal: No problems Neurological: No problems Skin: No problems Vital Signs - Temperature Temperature: 97.9 F Temperature Source: Oral - Pulse Right Brachial Pulse Rate: 98 Pulse Assessment Method: Automatic Cuff - Respirations Respiratory Rate: 18 Oxygen Delivery Method: Room Air O2 Sat by Pulse Oximetry: 96 - Blood Pressure Right Arm Blood Pressure: 135/83 Blood Pressure Mean: 100 Blood Pressure Source: Automatic Cuff Medical Screen Scoring - Assessment - Baby A Baseline FHR: 135 Heart Rate - NICHD Category: Category I (Normal) NST: Reactive Physician Notification - Physician Notified Physician Notified Date: 03/05/23 Physician Notified Time: 16:33 Physician: Edwardo Mckeon New Order Received: Yes (dc home) Maternal Triage Index - Urgent/Priority 2 Urgent Priority 2: Yes Provider Notified: Edwardo Mckeon Provider Notified Time: 15:20 Criteria Met for Priority 2: orders given for labwork Disposition - Disposition OB Disposition: Discharge to home, Written follow up instructions reviewed Discharge Date: 03/05/23 Discharge Time: 16:45 I agree with the RN Medical Screening Exam: Yes Physician's MSE Comment: I have neither seen nor examined the patient. Case reviewed; plan agreed upon as documented in EMR&OBIX.: Yes Diagnosis: RELATED CONDITIONS, UNSPECIFIED, THIRD TRIMESTER
== END 2023-03-05 16:45 | disposition home or self-care (01) ==
LOC: FBPOP 14:45
PROVIDERS: ATTEND Obstetrics & Gynecology
DX: O21.9 Vomiting of pregnancy, unspecified (principal); O13.3 Gestational [pregnancy-induced] hypertension without significant proteinuria, third trimester; O99.333 Smoking (tobacco) complicating pregnancy, third trimester; F17.200 Nicotine dependence, unspecified, uncomplicated; Z3A.33 33 weeks gestation of pregnancy; Z79.82 Long term (current) use of aspirin; Z88.8 Allergy status to other drugs, medicaments and biological substances
CPT/HCPCS: 59025; 81001; 82565; 82570; 83615; 84156; 84450; 84460; 84520; 84550; 85025; 99215

== ENCOUNTER → 2023-03-06 | Outpatient (CLI) | payer BC ==
[2023-03-06 17:14] LABS: HGB 12.7 g/dL (12.0-15.0); MCH 29.9 pg (27.0-32.0); MCHC 33.4 g/dL (32.0-37.0); MCV 89.4 FL (80.0-97.0); Mean Platelet Volume 10.2 FL (9.5-12.2); NRBC Per 100 WBC 0 X 10*3/uL (0.00-0.01); Platelet Count 199 X 10*3/uL (140-440); RBC 4.25 X 10*6/uL (4.10-5.20); RDW 13.9 % (11.5-14.5); Uric Acid 2.7 mg/dL (2.9-7.7); WBC 9.29 X 10*3/uL (4.50-10.00)
[2023-03-07 05:09] LABS: Total Volume 24 Hour,Urine 2600 mL
[2023-03-07 05:29] LABS: Total Protein 24 Hour,Urine 317.2 mg/24Hr (0.0-165.0)
== END | disposition home or self-care (01) ==
LOC: LABMAIN 10:22
PROVIDERS: ATTEND Obstetrics & Gynecology
DX: O13.9 Gestational [pregnancy-induced] hypertension without significant proteinuria, unspecified trimester (principal); Z3A.00 Weeks of gestation of pregnancy not specified
CPT/HCPCS: 81050; 82575; 84156; 84450; 84460; 84550; 85027

== ENCOUNTER 2023-04-05 00:44 | Inpatient (IN) | payer BC ==
[2023-04-05] MEDS ORDERED: OXYTOCIN 10 UNIT/ML 1 ML VIAL IM PRN (03:08)
[2023-04-05] MEDS ORDERED: CARBOPROST TROMETHAMINE 250 MCG/ML 1 ML AMP IM PRN (03:08)
[2023-04-05] MEDS ORDERED: LIDOCAINE 0.5% (PF) 5 MG/ML (50 ML SDV) SQ PRN (03:08)
[2023-04-05] MEDS ORDERED: PENICILLIN G POTASSIUM 5,000,000 UNIT in DEXTROSE 5% IN WATER 100 ML IVPB STA ×2 (03:08)
[2023-04-05] MEDS ORDERED: METHYLERGONOVINE 0.2 MG/ML 1 ML AMP IM PRN (03:08)
[2023-04-05] MEDS ORDERED: TRANEXAMIC 1,000 MG/100ML-NACL 1,000 MG in EMPTY BAG 1 BAG IV PRN (03:08)
[2023-04-05] MEDS ORDERED: TERBUTALINE 1 MG/ML VIAL SQ PRN (03:08)
[2023-04-05] MEDS ORDERED: miSOPROStoL 200 MCG TAB PO PRN (03:08)
[2023-04-05 03:40] LABS: Basophils % (A) 0 %; Eosinophils # (A) 0.1 k/uL (0-0.7); Eosinophils % (A) 1 %; HCT 38.2 % (34.0-46.0); HGB 12.8 gm/dL (11.4-16.0); Lymphocytes % (A) 19 %; MCH 29.6 pg (25.0-35.0); MCHC 33.5 g/dL (31.0-37.0); MCV 88.4 fL (80.0-100.0); Mean Platelet Volume 7.7; Monocytes # (A) 0.5 k/uL (0-1.0); Monocytes % (A) 4 %; Neutrophils % (A) 75 %; Platelet Count 195 k/uL (150-450); RBC 4.32 m/uL (3.80-5.40); RDW 14.1 % (11.5-15.5); WBC 10.7 k/uL (3.8-10.6)
[2023-04-05] MEDS: LACTATED RINGERS 1,000 ML IV SCH ×3 (03:51→13:25)
[2023-04-05] MEDS ORDERED: OXYTOCIN 30 UNITS/500 ML NS 30 UNIT in SALINE 1 500ML.BAG IV SCH (06:00)
[2023-04-05] MEDS: PENICILLIN G POTASSIUM 2,500,000 UNIT in DEXTROSE 5% IN WATER 100 ML IVPB SCH ×8 (08:02→21:27)
--- NOTE | 2023-04-05 08:13 | P.HPOB ---
History of Present Illness H&P Date: 04/05/23 Chief Complaint: Labor at 37-2/7 weeks' This is a 38-year-old 4 para 1112 woman with an estimated due date of 04/23/2023 based on first trimester ultrasound. She presents at 37-2/7 weeks' gestation with increase contractions. She was 4 cm dilated and upon initial e valuation and progressed to 5 cm dilated therefore was admitted. Her has been complicated by gestational hypertension. She has been on labetalol 200 mg twice a day and had a very mildly elevated 24 urine protein of 317 mg at 33 weeks has. She's had excessive maternal weight gain of greater than 70 pounds. She's been followed for macrosomia with estimated weight greater than the 95th percentile and polyhydramnios of greater than 27 cm. testing has all been reassuring. Obstetric history: First trimester miscarriage with D&C 2010, 35 week spontaneous vaginal delivery in 2011, 38 week spontaneous vaginal delivery in 2019. Laboratory data: Blood type B positive, antibody screen negative, rubella immune, VDRL nonreactive, hep Eli surface antigen negative, gonorrhea and clinic cultures negative, early glucose tolerance testing within normal limits, 26 week glucose tolerance testing within normal limits, group B strep positive. Review of Systems All systems: negative Past Medical History Past Medical History: Hypertension Additional Past Medical History / Comment(s): induced HTN 3 yrs. ago, has resolved. Diverticulitis. History of Any Multi-Drug Resistant Organisms: None Reported Past Surgical History: Cholecystectomy Additional Past Surgical History / Comment(s): D&C 2011, Delfina 2001 Past Anesthesia/Blood Transfusion Reactions: No Reported Reaction Past Psychological History: No Psychological Hx Reported Smoking Status: Never smoker Past Alcohol Use History: Rare Past Drug Use History: None Reported - Past Family History Mother Family Medical History: Cancer, Hypertension Additional Family Medical History / Comment(s): breast cancer Sister(s) Family Medical History: Cancer Additional Family Medical History / Comment(s): uterine cancer Medications and Allergies Home Medications Medication Instructions Recorded Confirmed Type Aspirin [Kimble Aspirin EC] 81 mg PO DAILY 03/05/23 04/05/23 History Labetalol [Trandate] 200 mg PO BID 03/05/23 04/05/23 History Multivitamin [Multivitamins Adult 1 tablet PO DAILY 03/05/23 04/05/23 History Gummies] Allergies Allergy/AdvReac Type Severity Reaction Status Date / Time meperidine HCl [From Demerol] AdvReac Vomiting Verified 04/05/23 00:47 Exam Vital Signs Temp Pulse Resp BP Pulse Ox 04/05/23 00:46 95.5 F L 90 17 140/75 97 Intake and Output 04/04/23 04/05/23 04/05/23 22:59 06:59 14:59 Other: # Voids 1 Weight 138.346 kg This is a pleasant, visibly gravid female. HEENT exam unremarkable. Breathing is unlabored and her heart is a regular rate and rhythm. The abdomen is obese and gravid. On pelvic examination the cervix is 4 cm dilated 50% effaced and the vertex is in the -3 station and posterior. Artificial rupture o f membranes is undertaken and copious clear fluid is noted. She has 2+ bilateral lower extremity edema and no deep tendon reflexes. status is reassuring with category 1 heart tones and irregular contractions. Results Result Diagrams: 04/05/23 03:25 Abnormal Lab Results - Last 24 Hours (Table) 04/05/23 Range/Units 03:25 WBC 10.7 H (3.8-10.6) k/uL Neutrophils # 8.0 H (1.3-7.7) k/uL Assessment and Plan (1) Advanced maternal age (AMA) in Current Visit: Yes Status: Acute Code(s): FWP7457 - SNOMED Code(s): 793816802 (2) GBS (group B Streptococcus carrier), +RV culture, currently Current Visit: Yes Status: Acute Code(s): O99.820 - STREPTOCOCCUS B CARRIER STATE COMPLICATING SNOMED Code(s): 5268068103565 (3) Spontaneous onset of labor Current Visit: Yes Status: Acute Code(s): AEE3174 - SNOMED Code(s): 60024970 (4) Polyhydramnios Current Visit: Yes Status: Acute Code(s): O40.9XX0 - POLYHYDRAMNIOS, UNSP TRIMESTER, NOT APPLICABLE OR UNSP SNOMED Code(s): 09430397 (5) induced hypertension Current Visit: Yes Status: Acute Code(s): O13.9 - GESTATIONAL HTN W/O SIGNIFICANT PROTEINURIA, UNSP TRIMESTER SNOMED Code(s): 99024279 (6) Macrosomia Current Visit: Yes Status: Acute Code(s): P08.0 - EXCEPTIONALLY LARGE BABY SNOMED Code(s): 69040366 Plan: 38-year-old 4 para 1112 woman admitted at 37-2/7 weeks' gestation in spontaneous early active labor. Pitocin augmentation is initiated. She is getting group B strep prophylactic antibiotics. Blood pressures and laboratory data are normal at this time. macrosomia by ultrasound. Patient has been counseled regarding potential risks for delivery.
[2023-04-05] MEDS ORDERED: ROPIVACAINE 5 MG/ML 30 ML VIAL ONE (12:04)
[2023-04-05] MEDS ORDERED: fentaNYL (PF) 50 MCG/ML 5 ML AMP ONE (12:04)
[2023-04-05] MEDS ORDERED: SODIUM CHLORIDE 0.9% 250 ML BAG ONE (12:04)
[2023-04-05] MEDS ORDERED: HYDROCORTISONE 2.5% RECTAL CREAM 30 GM TUBE RECTAL PRN (16:28)
[2023-04-05] MEDS ORDERED: BENZOCAINE/MENTHOL SPRAY 1 GM/SPRAY AEROSOL TOPICAL PRN (16:28)
[2023-04-05] MEDS ORDERED: SIMETHICONE 80 MG CHEWABLE PO PRN (16:28)
[2023-04-05] MEDS ORDERED: ZOLPIDEM 5 MG TAB PO PRN (16:28)
[2023-04-05] MEDS ORDERED: IBUPROFEN 600 MG TAB PO PRN (16:28)
[2023-04-05] MEDS ORDERED: diphenhydrAMINE 25 MG CAP PO PRN (16:28)
[2023-04-05] MEDS ORDERED: LANOLIN CREAM 5 GM TUBE TOPICAL PRN (16:28)
[2023-04-05] MEDS ORDERED: diphenhydrAMINE 50 MG CAP PO PRN (16:28)
[2023-04-05] MEDS ORDERED: ACETAMINOPHEN TAB 325 MG TAB PO PRN (16:28)
[2023-04-05] MEDS ORDERED: diphenhydrAMINE 50 MG/ML 1 ML VIAL IVP PRN ×2 (16:28)
--- NOTE | 2023-04-05 16:28 | P.PROBDLV ---
Vaginal Delivery Note - . Vaginal Delivery Note: DATE OF SERVICE: 04/05/2023 PROCEDURE: Normal Vaginal Delivery ATTENDING: Dr. Yanique Mancia MD ESTIMATED BLOOD LOSS: 100 mL FINDINGS: VMI, Apgars pending. Weight 3500 grams (7 pounds and 12 ounces) PROCEDURE: Ms. Powell is a 38 year old at 37 weeks and 3 days presenting to labor and delivery for medical induction of labor for gestational hypertension. She was scheduled for the following day, however, the decision was made to keep and induce a day earlier due to some decelerations with contractions and early labor. For further details, please review the admitting H&P. AROM was performed at 758 revealing clear fluid. The patient was completely dilated at 1548.The patient pushed effectively with Category I heart tones noted. A viable male was delivered at 1606. The was placed on the maternal abdomen and bulb suctioned. Cord was clamped and cut after a 30-second delay. The was handed off to the pediatric team. Placenta was delivered whole with gentle cord traction at 1608. Oxytocin was started to facilitate uterine tone. Uterine fundus was found to be firm and below the umbilicus upon fundal massage. Thorough examination of the cervix, vagina, periurethral area, and perineum revealed no lacerations. The patient is stable and allowed to begin the bonding process.
[2023-04-05] MEDS: SENNOSIDES-DOCUSATE SODIUM 1 EACH TAB PO SCH (21:27)
[2023-04-06 07:09] LABS: Basophils % (A) 0 %; Eosinophils % (A) 0 %; HCT 35.3 % (34.0-46.0); HGB 12.1 gm/dL (11.4-16.0); Lymphocytes # (A) 1.5 k/uL (1.0-4.8); Lymphocytes % (A) 14 %; MCH 30.8 pg (25.0-35.0); MCHC 34.4 g/dL (31.0-37.0); MCV 89.5 fL (80.0-100.0); Mean Platelet Volume 7.8; Monocytes # (A) 0.5 k/uL (0-1.0); Monocytes % (A) 5 %; Neutrophils # (A) 8.7 k/uL (1.3-7.7); Neutrophils % (A) 79 %; Platelet Count 186 k/uL (150-450); RBC 3.94 m/uL (3.80-5.40); RDW 14.1 % (11.5-15.5)
[2023-04-06] MEDS: SENNOSIDES-DOCUSATE SODIUM 1 EACH TAB PO SCH (11:35)
--- NOTE | 2023-04-06 12:48 | P.DS ---
Providers Date of admission: 04/05/23 02:59 Expected date of discharge: 04/06/23 Attending physician: Jeannie Headley Primary care physician: Stated None - Discharge Diagnosis(es) (1) Advanced maternal age (AMA) in Current Visit: Yes Status: Acute (2) GBS (group B Streptococcus carrier), +RV culture, currently Current Visit: Yes Status: Acute (3) Spontaneous onset of labor Current Visit: Yes Status: Acute (4) Polyhydramnios Current Visit: Yes Status: Acute (5) induced hypertension Current Visit: Yes Status: Acute (6) Macrosomia Current Visit: Yes Status: Acute (7) Normal spontaneous vaginal delivery Current Visit: Yes Status: Acute Hospital Course: This is a 38 year old 4 now para 3 woman who was admitted in early active labor at 37-2/7 weeks' gestation. been complicated by gestational hypertension and polyhydramnios, suspected macrosomia. Following admission she did undergo artificial rupture of membranes and received Pitocin augmentation of labor. She received an epidural anesthetic in active labor. She went on to have an unremarkable delivery of a live born female i nfant over an intact perineum with Apgars of 9 at 1 minute and 9 at 5 minutes weighing 3500 g. Please see the delivery summary for details. Her course was unremarkable. Her blood pressures remained stable throughout her hospital stay. By the morning of day #1 she was ambulating and voiding without difficulty. Her lochia was moderate and she was breast-feeding successfully. Her vital signs were stable. circumcision was undertaken. The patient was discharged home with routine instructions for care and follow-up. She will follow her blood pressures at home Procedures: Normal spontaneous vaginal delivery Patient Condition at Discharge: Good Plan - Discharge Summary Discharge Rx Participant: Yes New Discharge Prescriptions: New Ibuprofen [Motrin] 600 mg PO Q6HR PRN tab PRN Reason: Mild Pain (Scale 1 To 3) Continue Labetalol [Trandate] 200 mg PO BID No Action Multivitamin [Multivitamins Adult Gummies] 1 tablet PO DAILY Aspirin [[place] Aspirin EC] 81 mg PO DAILY Discharge Medication List Aspirin [[place] Aspirin EC] 81 mg PO DAILY 03/05/23 [History] Labetalol [Trandate] 200 mg PO BID 03/05/23 [History] Multivitamin [Multivitamins Adult Gummies] 1 tablet PO DAILY 03/05/23 [History] Ibuprofen [Motrin] 600 mg PO Q6HR PRN tab 04/06/23 [Rx] Follow up Appointment(s)/Referral(s): Jeannie Headley MD [STAFF PHYSICIAN] - 6 Weeks Activity/Diet/Wound Care/Special Instructions: Follow-up in the office in 6 weeks . Call with any concerning signs or symptoms including heavy vaginal bleeding, severe abdominal pain, fever greater than 101, swelling or redness of the lower extremities, foul vaginal discharge, or signs of depression. Nothing in the vagina for 6 weeks after delivery, specifically no intercourse.
[2023-04-07] MEDS: SENNOSIDES-DOCUSATE SODIUM 1 EACH TAB PO SCH ×2 (00:43→08:10)
[2023-04-07 01:57] VITALS: TEMP 98.4
[2023-04-07 08:15] VITALS: BP 128/89; PULSE 80; RESP 17
== END 2023-04-07 09:59 | disposition home or self-care (01) | DRG 807 ==
LOC: FBPOP 00:44 → 4FBP 02:59
PROVIDERS: ADMIT Obstetrics & Gynecology; ATTEND Obstetrics & Gynecology
PROC: 10E0XZZ Delivery of Products of Conception, External Approach (ICD-10-PCS; principal; 2023-04-05)
PROC: 10907ZC Drainage of Amniotic Fluid, Therapeutic from Products of Conception, Via Natural or Artificial Opening (ICD-10-PCS; 2023-04-05)
PROC: 4A1HXCZ Monitoring of Products of Conception, Cardiac Rate, External Approach (ICD-10-PCS; 2023-04-05)
PROC: 3E033VJ Introduction of Other Hormone into Peripheral Vein, Percutaneous Approach (ICD-10-PCS; 2023-04-05)
DX: O13.4 Gestational [pregnancy-induced] hypertension without significant proteinuria, complicating childbirth (principal); Z37.0 Single live birth; O36.63X0 Maternal care for excessive fetal growth, third trimester, not applicable or unspecified; O99.824 Streptococcus B carrier state complicating childbirth; O26.03 Excessive weight gain in pregnancy, third trimester; O40.3XX0 Polyhydramnios, third trimester, not applicable or unspecified; Z3A.37 37 weeks gestation of pregnancy; Z79.82 Long term (current) use of aspirin; Z82.49 Family history of ischemic heart disease and other diseases of the circulatory system
CPT/HCPCS: 59025; 85025; 86850; 86900; 86901; 99213

== ENCOUNTER → 2024-04-12 | Outpatient (CLI) | payer BC ==
--- NOTE | 2024-04-15 08:18 | MM ---
Reason for Exam: Screening (asymptomatic). Patient History: Menarche at age 12. First Full-Term at age 26. Premenopausal. Maternal grandmother had breast cancer at or over age 50. Mother had breast cancer, age 51. Mother tested for BRCA1 outcome was negative. Risk Values: Catie 5 year model risk: 1.1%. NCI Lifetime model risk: 18.8%. Tissue Density: The breasts are almost entirely fatty. Findings: Analyzed By CAD. Right breast: There is no suspicious group of microcalcifications or new suspicious mass. Benign-appearing calcifications left breast. Left breast: There is no suspicious group of microcalcifications or new suspicious mass. Overall Assessment: Negative, BI-RAD 1 Management: Screening Mammogram of both breasts in [address] [facility] will attempt to contact patient to return for supplemental views and ultrasound if indicated. Patient should continue monthly self-breast exams. A clinical breast exam by your physician is recommended on an annual basis. This exam should not preclude additional follow-up of suspicious palpable abnormalities. Note on Catie scores and lifetime risk: 1. A Catie score greater than 3% is considered moderate risk. If this is the case, consider specialist referral to assess eligibility for a risk reducing agent. 2. If overall lifetime risk for the development of breast cancer is 20% or higher, the patient may qualify for future screening with alternating mammogram and breast MRI. [facility], , 04/15/2024 8:15 AM. Electronically signed and approved by: Adal Lynn DO
== END | disposition home or self-care (01) ==
LOC: RADMAMWWP 14:12
PROVIDERS: ATTEND Obstetrics & Gynecology
DX: Z12.31 Encounter for screening mammogram for malignant neoplasm of breast (principal); Z80.3 Family history of malignant neoplasm of breast; R92.313 Mammographic fatty tissue density, bilateral breasts
CPT/HCPCS: 77063; 77067

== ENCOUNTER → 2024-08-09 | Outpatient (CLI) | payer BC ==
--- NOTE | 2024-08-09 10:21 | XR ---
EXAMINATION TYPE: XR chest 2V DATE OF EXAM: 08/09/2024 10:18 AM COMPARISON: 05/03/2022 CLINICAL INDICATION: Female, 39 years old with history of COUGH, TECHNIQUE: Frontal and lateral views of the chest are obtained. FINDINGS: There is no focal air space opacity, pleural effusion, or pneumothorax seen. The cardiac silhouette size is within normal limits. The osseous structures are intact. IMPRESSION: No acute cardiopulmonary process. [facility], , 08/09/2024 10:19 AM
== END | disposition home or self-care (01) ==
LOC: LABMAIN 10:10
PROVIDERS: ATTEND Emergency Medicine
DX: R05.9 Cough, unspecified (principal)
CPT/HCPCS: 71046; 85379